=== PATIENT | female | born 1950 | race Caucasian/White ===

== ENCOUNTER 2017-07-27 04:10 | Emergency (ER) | payer MEDICARE, OTHER ==
[2017-07-27 04:16] VITALS: BP 164/89
[2017-07-27] MEDS ORDERED: Alum Hydrox/Mag Hydrox/Simeth 30 ML, Lidocaine 2% 15 ML PO STA ×2 (04:53)
--- NOTE | 2017-07-27 05:03 | EDM.PDOC ---
ED HPI GENERAL MEDICAL PROBLEM - General Chief Complaint: Cardiovascular Problem Stated Complaint: CHEST PAIN Time Seen by Provider: 07/27/17 04:20 Source of Information: Reports: Patient, Family (), RN Notes Reviewed History Limitations: Reports: No Limitations - History of Present Illness INITIAL COMMENTS - FREE TEXT/NARRATIVE: The patient states that she noticed a "tweak" in her central chest last night around 18:00. She describes the tweak as a stabbing pain, sudden onset, with associated dyspnea. She states that it "knocked the wind out of me". She did not have nausea, diaphoresis, or sense of impending doom. The sensation lasted around 10 minutes. The patient was then woken up around 04:00 with a burning sensation in her central chest. It has persisted. No prior similar symptoms, however, the patient also relates left scapular pain about 2 days ago, that the patient was able to relieve with local massage. The patient and her recently moved to this area. Her PCP is in [place]. Left Chest Pain Score (Numeric/FACES): 6 - Related Data Allergies Allergy/AdvReac Type Severity Reaction Status Date / Time Penicillins Allergy Severe Hives Verified 07/27/17 04:18 acetaminophen Allergy Hives Verified 07/27/17 04:18 [From Darvocet-N] Anesthetics - Amide Type Allergy Hives Verified 07/27/17 04:18 Anesthetics - [place] Type- Allergy Hives Verified 07/27/17 04:18 Parabens aspirin Allergy Hives Verified 07/27/17 04:18 latex Allergy Hives Verified 07/27/17 04:18 propoxyphene Allergy Hives Verified 07/27/17 04:18 [From Darvocet-N] Home Meds: Home Meds Hydrochlorothiazide 07/27/17 [History] Metoprolol Succinate 07/27/17 [History] Ramipril [Altace] 07/27/17 [History] Past Medical History HEENT History: Reports: Glaucoma (right eye) Cardiovascular History: Reports: Hypertension Genitourinary History: Reports: Renal Calculus, Urinary Incontinence Musculoskeletal History: Reports: Arthritis Neurological History: Reports: CVA Endocrine/Metabolic History: Reports: Other (See Below) (Prediabetes) - Past Surgical History HEENT Surgical History: Reports: Other (See Below) (Maxillofacial surgery as a child) Female Surgical History: Reports: Hysterectomy, Kidney stone extraction, Lithotripsy/ESWL, Salpingo-Oophorectomy Neurological Surgical History: Reports: Lumbar Spine Musculoskeletal Surgical History: Reports: Other (See Below) (Left great toe joint replacement) Social & Family History - Family History Family Medical History: Noncontributory - Tobacco Use Smoking Status *Q: Former Smoker Month Tobacco Last Used: Quit 1975 - Alcohol Use Alcohol Use History: Yes Alcohol Use Frequency: Socially - Recreational Drug Use Recreational Drug Use: No - Living Situation & Occupation Living situation: Reports: , with Spouse Occupation: Retired ED [employer] GENERAL - Review of Systems Review Of Systems: See Below Constitutional: Reports: No Symptoms HEENT: Reports: No Symptoms Respiratory: Reports: Cough (cough x 2 months) Cardiovascular: Reports: No Symptoms Endocrine: Reports: No Symptoms GI/Abdominal: Reports: No Symptoms : Reports: No Symptoms Musculoskeletal: Reports: No Symptoms Skin: Reports: No Symptoms Neurological: Reports: No Symptoms Psychiatric: Reports: No Symptoms Hematologic/Lymphatic: Reports: No Symptoms Immunologic: Reports: No Symptoms ED EXAM, GENERAL - Physical Exam Exam: See Below Exam Limited By: No Limitations General Appearance: Alert, WD/WN, No Apparent Distress Eye Exam: Bilateral Eye: Normal Inspection Ears: Normal External Exam, Hearing Grossly Normal Nose: Normal Inspection, No Blood Throat/Mouth: Normal Inspection, Normal Lips, Normal Voice, No Airway Compromise Head: Atraumatic, Normocephalic Neck: Normal Inspection, Full Range of Motion Respiratory/Chest: No Respiratory Distress, Lungs Clear, Normal Breath Sounds, No Accessory Muscle Use, Chest Non-Tender Cardiovascular: Normal Peripheral Pulses, Regular Rate, Rhythm, No Gallop, No JVD, No Murmur, No Rub Peripheral Pulses: 4+: Radial (L), Radial (R) GI/Abdominal: Normal Bowel Sounds, Soft, Non-Tender, No Organomegaly, No Distention, No Abnormal Bruit, No Mass (Female) Exam: Deferred Rectal (Female) Exam: Deferred Back Exam: Normal Inspection, Full Range of Motion, NT Extremities: Normal Inspection, Normal Range of Motion, No Pedal Edema, Normal Capillary Refill Neurological: Alert, Oriented, No Motor/Sensory Deficits Psychiatric: Normal Affect Skin Exam: Warm, Dry, Intact, Normal Color, No Rash Lymphatic: No Adenopathy EKG INTERPRETATION EKG Date: 07/27/17 Time: 04:16 Rhythm: NSR Rate (Beats/Min): 61 [place]: Normal P-Wave: Present QRS: Normal ST-T: Normal QT: Normal Comparison: NA - No Prior EKG Course - Vital Signs Last Recorded V/S: Last Vital Signs Temp 36.0 C 07/27/17 04:13 Pulse 65 07/27/17 04:13 Resp 18 07/27/17 04:13 BP 164/89 H 07/27/17 04:13 Pulse Ox 99 07/27/17 04:13 - Orders/Labs/Meds Orders: Active Orders 24 hr Category Date Time Status EKG Documentation Completion [RC] STAT Care 07/27/17 04:20 Active Chest 2V [CR] Stat Exams 07/27/17 04:57 Taken BLOOD GAS ARTERIAL [BG] Stat Lab 07/27/17 04:58 Ordered Labs: Laboratory Tests 07/27/17 07/27/17 07/27/17 Range/Units 04:20 04:20 04:20 WBC 5.70 (3.98-10.04) K/mm3 RBC 4.61 (3.98-5.22) M/mm3 Hgb 14.5 (11.2-15.7) gm/L Hct 43.2 (34.1-44.9) % MCV 93.7 (79.4-94.8) fl MCH 31.5 (25.6-32.2) pg MCHC 33.6 (32.2-35.5) g/dl RDW Std Deviation 44.0 (36.4-46.3) fL Plt Count 260 (182-369) K/mm3 MPV 10.7 (9.4-12.3) fl Neutrophils % (Manual) 58 (40-60) % Band Neutrophils % 1 (0-10) % Lymphocytes % (Manual) 29 (20-40) % Atypical Lymphs % 0 % Monocytes % (Manual) 9 (2-10) % Eosinophils % (Manual) 3 (0.7-5.8) % Basophils % (Manual) 0 L (0.1-1.2) Platelet Estimate Adequate RBC Morph Comment Normal PT 9.7 (8.0-13.0) SECONDS INR 0.90 APTT 25 (22-36) SECONDS D-Dimer, Quantitative 0.45 (0.19-0.59) mg/L Sodium 143 (136-145) mEq/L Potassium 3.6 (3.5-5.1) mEq/L Chloride 106 (98-107) mEq/L Carbon Dioxide 32 (21-32) mEq/L Anion Gap 8.6 (5-15) BUN 26 H (7-18) mg/dL Creatinine 1.1 H (0.55-1.02) mg/dL Est Cr Clr Drug Dosing 42.18 mL/min Estimated GFR (MDRD) 50 (>60) mL/min BUN/Creatinine Ratio 23.6 H (14-18) Glucose 110 (80-115) mg/dL Calcium 9.1 (8.5-10.1) mg/dL Total Bilirubin 0.5 (0.2-1.0) mg/dL AST 20 (15-37) U/L ALT 26 (14-59) U/L Alkaline Phosphatase 96 (46-116) U/L Troponin I < 0.017 (0.00-0.056) ng/mL NT-Pro-B Natriuret Pep 242 H (0-125) pg/mL Total Protein 7.0 (6.4-8.2) g/dl Albumin 4.0 (3.4-5.0) g/dl Globulin 3.0 gm/dL Albumin/Globulin Ratio 1.3 (1-2) Meds: Medications Discontinued Medications Generic Name Dose Route Start Last Admin Trade Name Freq PRN Reason Stop Dose Admin Al Hydroxide/Mg Hydroxide 30 0 ml 07/27/17 04:53 07/27/17 04:57 ml/ Lidocaine HCl 15 ml PO 07/27/17 04:54 45 ml ONETIME STA Administration - Re-Assessments/Exams Free Text/Narrative Re-Assessment/Exam: 07/27/17 05:02 The patient states that the GI cocktail modified the discomfort that she had in her chest - not necessarily better or worse, but different. 07/27/17 05:23 Two-view chest radiograph appears to be grossly normal. Cardiac silhouette is within normal limits. No pulmonary vascular congestion. No pleural effusions. No focal infiltrate. No pneumothorax. Hyperinflation and modest bilateral diaphragmatic flattening, consistent with COPD, noted. Formal read per the Radiologist pending. 07/27/17 05:58 Notified by the respiratory therapist that he was unable to acquire an ABG after 2 attempts. 07/27/17 06:10 Test results discussed with the patient and her . Clinically, I suspect that the patient's symptoms were caused by GERD, although he also appears that she was hyperventilating, possibly due to the discomfort, possibly due to anxiety. Significant causes, such as acute coronary event, pulmonary embolus, pneumonia, pneumothorax, etc. have been ruled out. I'm recommending that if her symptoms persist, that she take [id number] Pepcid, and if that does not help, that she be evaluated with an EGD. I will refer her to Dr. Giron in the clinic. Departure - Departure Time of Disposition: 06:11 Disposition: Home, Self-Care 01 Condition: Good Clinical Impression: GERD (gastroesophageal reflux disease), Anxiety Referrals: PCP,Jermaine [Primary Care Provider] - Jon Giron [Physician] - Forms: ED Department Discharge Additional Instructions: You were seen in the emergency room for a stabbing pain in your chest, along with shortness of breath, followed by a burning sensation in your chest. Workup in the ER included blood work, an ECG, and a chest XRay. Your entire workup was unremarkable. You have not suffered a heart attack. You do not have a blood clot in her chest. You do not have pneumonia. You do not have a collapsed lung. Your chest pain was MOST LIKELY due to acid reflux, also known as GERD. If your symptoms continue, we recommend you take [id number] Pepcid once, or even twice a day. If that does not help, further evaluation is necessary. Please follow-up with Dr. Giron in the clinic. If any other problems, please do not hesitate to return to the ER. - My Orders Last 24 Hours: My Active Orders 07/27/17 04:20 EKG Documentation Completion [RC] STAT 07/27/17 04:57 Chest 2V [CR] Stat 07/27/17 04:58 BLOOD GAS ARTERIAL [BG] Stat - Assessment/Plan Last 24 Hours: My Active Orders 07/27/17 04:20 EKG Documentation Completion [RC] STAT 07/27/17 04:57 Chest 2V [CR] Stat 07/27/17 04:58 BLOOD GAS ARTERIAL [BG] Stat
--- NOTE | 2017-07-31 08:21 | CR ---
Chest: Two views of the chest were obtained. Comparison: No prior chest x-ray. Heart size is normal. Mild tortuosity of the thoracic aorta is noted. Lungs are clear without acute infiltrates. Nodule is identified within the right lung base which appears rather dense and is felt compatible with granuloma. Slight degenerative change is scattered within the spine. Impression: 1. Incidental findings. Nothing acute is appreciated on two-view chest x-ray. Diagnostic code #2
== END 2017-07-27 06:19 | disposition home or self-care (01) ==
LOC: JD.ED 04:10
DX: K21.9 Gastro-esophageal reflux disease without esophagitis (principal); F41.9 Anxiety disorder, unspecified; I10 Essential (primary) hypertension; Z88.0 Allergy status to penicillin; Z88.6 Allergy status to analgesic agent; Z91.040 Latex allergy status; Z87.442 Personal history of urinary calculi; Z86.73 Personal history of transient ischemic attack (TIA), and cerebral infarction without residual deficits; Z90.710 Acquired absence of both cervix and uterus; Z87.891 Personal history of nicotine dependence
CPT/HCPCS: 36415; 71020; 80053; 83880; 84484; 85025; 85379; 85610; 85730; 93005; 99285; A9270; 93010

== ENCOUNTER 2017-10-15 05:22 | Emergency (ER) | payer MEDICARE, OTHER ==
[2017-10-15 05:32] VITALS: BP 173/99
--- NOTE | 2017-10-15 06:11 | EDM.PDOC ---
ED HPI GENERAL MEDICAL PROBLEM - General Chief Complaint: Chest Pain Stated Complaint: CHEST PAIN Time Seen by Provider: 10/15/17 05:53 Source of Information: Reports: Patient, Family History Limitations: Reports: No Limitations - History of Present Illness INITIAL COMMENTS - FREE TEXT/NARRATIVE: This is a 67-year-old female. She comes tonight for multiple reasons. The first one is that she had a EDG at the end of January because, if I understand correctly , she had food stuck in her esophagus and she had to go to the hospital to get the food removed and then they did a biopsy of her esophagus. She has no idea what the biopsy showed. She says ever since that time she gets pinching in her chest and it makes her nervous and she wants to find out why she is having all these problems and she still having difficulty in swallowing. She was referred by her doctor to a GI doctor in [place] but that appointment is going to be in a few weeks. Looking in the past notes she seems to have this problem with this pinching in her chest with her visits to the ER as well as her family doctor. Her second problem is that she has left-sided low back pain that started around October 08 when she leaned back and she felt her back crack. Now she has pain in her left lower back at that sometimes radiates down her left leg but just into the buttocks and thigh area. The third problem is that she feels dry all the time even though she drinks a lot of fluid and wonders why she is dry all the time. She does take a fluid pill but she doesn't know why she takes a fluid pill because she doesn't have a history of congestive heart failure or peripheral edema. The fourth problem is that her urine has been smelling strong the last few days and she wants her urine checked. She's had no fever no chills no nausea vomiting or diarrhea. Also concerned that her kidneys might be failing. The fifth problem she wants her potassium checked to make sure it's okay. Chest Pain Score (Numeric/FACES): 8 - Related Data Allergies Allergy/AdvReac Type Severity Reaction Status Date / Time Penicillins Allergy Severe Hives Verified 07/27/17 04:18 acetaminophen Allergy Hives Verified 07/27/17 04:18 [From Darvocet-N] Anesthetics - Amide Type Allergy Hives Verified 07/27/17 04:18 Anesthetics - Maylin Type- Allergy Hives Verified 07/27/17 04:18 Parabens aspirin Allergy Hives Verified 07/27/17 04:18 latex Allergy Hives Verified 07/27/17 04:18 nut - unspecified Allergy Anaphylactic Verified 10/15/17 05:33 Shock propoxyphene Allergy Hives Verified 07/27/17 04:18 [From Darvocet-N] Home Meds: Home Meds Metoprolol Succinate 50 mg PO DAILY 07/27/17 [History] Ramipril [Altace] 20 mg PO DAILY 07/27/17 [History] Triamterene/Hydrochlorothiazid [Triamterene-HCTZ 37.5-25 MG] 1 cap PO QAM [History] Past Medical History HEENT History: Reports: Glaucoma Cardiovascular History: Reports: Hypertension Genitourinary History: Reports: Renal Calculus, Urinary Incontinence Musculoskeletal History: Reports: Arthritis Neurological History: Reports: CVA Endocrine/Metabolic History: Reports: Other (See Below) (Prediabetes) Other Endocrine/Metabolic History: patient states she is borderline diabetic and has it controlled with diet - Past Surgical History Female Surgical History: Reports: Hysterectomy, Kidney stone extraction, Lithotripsy/ESWL, Salpingo-Oophorectomy Neurological Surgical History: Reports: Lumbar Spine Musculoskeletal Surgical History: Reports: Other (See Below) Social & Family History - Family History Family Medical History: Noncontributory - Tobacco Use Smoking Status *Q: Never Smoker Month Tobacco Last Used: Quit 1975 - Recreational Drug Use Recreational Drug Use: No - Living Situation & Occupation Living situation: Reports: , with Spouse Occupation: Retired ED [employer] GENERAL - Review of Systems Review Of Systems: See Below Constitutional: Reports: Malaise, Weakness. Denies: Fever, Chills HEENT: Reports: No Symptoms Respiratory: Denies: Shortness of Breath, Cough Cardiovascular: Reports: Chest Pain. Denies: Edema Endocrine: Reports: No Symptoms GI/Abdominal: Denies: Abdominal Pain, Diarrhea, Nausea, Vomiting : Reports: Other (Her urine smells strong). Denies: Dysuria Musculoskeletal: Reports: Other (Left low back pain) Skin: Reports: Other (Skin is always dry as well as her throat) Neurological: Reports: No Symptoms Psychiatric: Reports: No Symptoms Hematologic/Lymphatic: Reports: No Symptoms ED EXAM, GENERAL - Physical Exam Exam: See Below Exam Limited By: No Limitations General Appearance: Alert, WD/WN, No Apparent Distress Eye Exam: Bilateral Eye: Normal Inspection Ears: Normal External Exam Nose: Normal Inspection Throat/Mouth: Normal Inspection, Normal Lips, Normal Voice, No Airway Compromise , Other (Mucous membranes are tacky but not super moist) Head: Normocephalic Neck: Supple Respiratory/Chest: No Respiratory Distress, Lungs Clear, Normal Breath Sounds Cardiovascular: Regular Rate, Rhythm, No Murmur GI/Abdominal: Soft, Non-Tender Back Exam: Other (She complains in the left lower back actually sacrum area at the left SI joint, I can palpate that joint and that's where she says her pain starts, she does not have any lumbar or thoracic paraspinal tenderness or midline spine pain noted) Extremities: Normal Inspection, Normal Range of Motion. No: Pedal Edema Neurological: Alert, Oriented Psychiatric: Normal Affect, Normal Mood Skin Exam: Warm, Dry EKG INTERPRETATION EKG Date: 10/15/17 Time: 06:00 EKG Interpretation Comments: Her EKG shows a sinus bradycardia, no acute ST or T-wave changes, no ski me changes noted. Course - Vital Signs Last Recorded V/S: Last Vital Signs Temp 96.7 F 10/15/17 05:25 Pulse 61 10/15/17 05:25 Resp 16 10/15/17 05:25 BP 173/99 H 10/15/17 05:25 Pulse Ox 100 10/15/17 05:25 - Orders/Labs/Meds Orders: Active Orders 24 hr Category Date Time Status EKG 12 Lead [EKG Documentation Completion] [RC] STAT Care 10/15/17 05:53 Active Labs: Laboratory Tests 10/15/17 10/15/17 10/15/17 Range/Units 05:35 05:35 06:45 WBC 5.01 (3.98-10.04) K/mm3 RBC 4.56 (3.98-5.22) M/mm3 Hgb 14.5 (11.2-15.7) gm/L Hct 42.0 (34.1-44.9) % MCV 92.1 (79.4-94.8) fl MCH 31.8 (25.6-32.2) pg MCHC 34.5 (32.2-35.5) g/dl RDW Std Deviation 41.5 (36.4-46.3) fL Plt Count 251 (182-369) K/mm3 MPV 10.1 (9.4-12.3) fl Neut % (Auto) 54.9 (34.0-71.1) % Lymph % (Auto) 32.7 (19.3-51.7) % [place] % (Auto) 10.0 (4.7-12.5) % Eos % (Auto) 1.8 (0.7-5.8) Baso % (Auto) 0.6 (0.1-1.2) % Neut # (Auto) 2.75 (1.56-6.13) K/mm3 Lymph # (Auto) 1.64 (1.18-3.74) K/mm3 [place] # (Auto) 0.50 H (0.24-0.36) K/mm3 Eos # (Auto) 0.09 (0.04-0.36) K/mm3 Baso # (Auto) 0.03 (0.01-0.08) K/mm3 Sodium 143 (136-145) mEq/L Potassium 3.4 L (3.5-5.1) mEq/L Chloride 106 (98-107) mEq/L Carbon Dioxide 28 (21-32) mEq/L Anion Gap 12.4 (5-15) BUN 19 H (7-18) mg/dL Creatinine 1.0 (0.55-1.02) mg/dL Est Cr Clr Drug Dosing 44.36 mL/min Estimated GFR (MDRD) 56 (>60) mL/min BUN/Creatinine Ratio 19.0 H (14-18) Glucose 101 (80-115) mg/dL Calcium 9.5 (8.5-10.1) mg/dL Total Bilirubin 0.6 (0.2-1.0) mg/dL AST 19 (15-37) U/L ALT 22 (14-59) U/L Alkaline Phosphatase 93 (46-116) U/L Troponin I < 0.017 (0.00-0.056) ng/mL Total Protein 7.1 (6.4-8.2) g/dl Albumin 4.0 (3.4-5.0) g/dl Globulin 3.1 gm/dL Albumin/Globulin Ratio 1.3 (1-2) Urine Color Yellow (Yellow) Urine Appearance Clear (Clear) Urine pH 6.0 (5.0-8.0) Ur Specific [place] 1.020 (1.005-1.030) Urine Protein Negative (Negative) Urine Glucose (UA) Negative (Negative) Urine Ketones Negative (Negative) Urine Occult Blood 1+ H (Negative) Urine Nitrite Negative (Negative) Urine Bilirubin Negative (Negative) Urine Urobilinogen 0.2 (0.2-1.0) Ur Leukocyte Esterase Trace H (Negative) Urine RBC 10-20 H (0-5) /hpf Urine WBC 5-10 H (0-5) /hpf Ur Epithelial Cells 0-5 (0-5) /hpf Urine Bacteria Few (FEW) /hpf Hyaline Casts 0-5 (0-5) /lpf Urine Mucus Few (FEW) /hpf - Re-Assessments/Exams Free Text/Narrative Re-Assessment/Exam: 10/15/17 07:15 I spoke to the patient and her family regarding the test results. I've encouraged her to follow up with her family doctor regarding the blood pressure medications and the fluid pill as well as talk to them about getting an upper endoscopy for her esophagus and possible physical therapy for her back. Departure - Departure Time of Disposition: 07:16 Disposition: Home, Self-Care 01 Condition: Good Clinical Impression: Disorder of left sacroiliac joint, Irritable esophagus Sciatica Qualifiers: Laterality: left Qualified Code(s): M54.32 - Sciatica, left side Hypertension Qualifiers: Hypertension type: essential hypertension Qualified Code(s): I10 - Essential ( primary) hypertension Hematuria Qualifiers: Hematuria type: unspecified type Qualified Code(s): R31.9 - Hematuria, unspecified Referrals: Jon Giron [Primary Care Provider] - Forms: ED Department Discharge Additional Instructions: Follow-up with her family physician, speak to him regarding your blood pressure being more elevated than normal and about possibly stopping the fluid pill since it dries you out, also speak to him about your sacroiliac joint and back pain and the need for physical therapy, also speak to him about your esophageal problems and the see if the GI doctor you're supposed to see in a couple of weeks can do an upper endoscopy as well as the colonoscopy at the same time, recheck the ER if needed - My Orders Last 24 Hours: My Active Orders 10/15/17 05:53 EKG 12 Lead [EKG Documentation Completion] [RC] STAT - Assessment/Plan Last 24 Hours: My Active Orders 10/15/17 05:53 EKG 12 Lead [EKG Documentation Completion] [RC] STAT
== END 2017-10-15 07:42 | disposition home or self-care (01) ==
LOC: JD.ED 05:22
DX: M54.42 Lumbago with sciatica, left side (principal); M53.3 Sacrococcygeal disorders, not elsewhere classified; I10 Essential (primary) hypertension; K22.9 Disease of esophagus, unspecified; R31.9 Hematuria, unspecified; Z88.0 Allergy status to penicillin; Z88.6 Allergy status to analgesic agent; Z91.040 Latex allergy status; Z88.8 Allergy status to other drugs, medicaments and biological substances; Z79.899 Other long term (current) drug therapy
CPT/HCPCS: 36415; 80053; 81001; 84484; 85025; 93005; 93010; 99285-25

== ENCOUNTER 2017-11-06 18:11 | Emergency (ER) | payer MEDICARE, OTHER ==
[2017-11-06 18:25] VITALS: BP 159/98
[2017-11-06] MEDS ORDERED: Famotidine 20 MG/2 ML SDV IVPUSH ONE (18:44)
[2017-11-06] MEDS ORDERED: predniSONE 20 MG Tab PO ONE (18:45)
[2017-11-06] MEDS ORDERED: diphenhydrAMINE 50 MG/ML SDV IVPUSH ONE (18:45)
--- NOTE | 2017-11-06 18:51 | EDM.PDOC ---
ED HPI GENERAL MEDICAL PROBLEM - General Chief Complaint: Allergic Reaction Stated Complaint: ALLERGIC REACTION (NUTS) Time Seen by Provider: 11/06/17 18:28 Source of Information: Reports: Patient History Limitations: Reports: No Limitations - History of Present Illness INITIAL COMMENTS - FREE TEXT/NARRATIVE: Patient is 67-year-old female presents ED with concerns of having allergic reaction to unknown food product. Patient had just eaten a piece of plain leyva , cheese, and date marmalade. Patient immediately started to experience the sensation her throat was closing off developed a small blister to the upper lip and became very anxious. She utilized a epi auto injector 0.3 mg and when attempting to inject into her leg she accidentally injected into her right thumb. Since then the symptoms have remained unchanged. She is not as anxious as she was prior though she continues have the sensation of her throat swelling shut. There is no rash present to her body. Small lesion to the upper lip persists. She is allergic to walnuts and pecans. Shes had a previous episode as such that did not require being intubated. She has a history of hypertension and takes metoprolol succinate and altace. She has a history of acid reflux and takes omeprazole. She is a borderline diabetic. - Related Data Allergies Allergy/AdvReac Type Severity Reaction Status Date / Time Penicillins Allergy Severe Hives Verified 11/06/17 18:25 acetaminophen Allergy Hives Verified 11/06/17 18:25 [From Darvocet-N] Anesthetics - Amide Type Allergy Hives Verified 11/06/17 18:25 Anesthetics - Maylin Type- Allergy Hives Verified 11/06/17 18:25 Parabens aspirin Allergy Hives Verified 11/06/17 18:25 latex Allergy Hives Verified 11/06/17 18:25 nut - unspecified Allergy Anaphylactic Verified 11/06/17 18:25 Shock propoxyphene Allergy Hives Verified 11/06/17 18:25 [From Darvocet-N] Home Meds: Home Meds Metoprolol Succinate 50 mg PO DAILY 07/27/17 [History] Ramipril [Altace] 20 mg PO DAILY 07/27/17 [History] EPINEPHrine [Epipen 2-William] 0.3 mg IJ ASDIRECTED PRN #1 ml 11/06/17 [Rx] Omeprazole 20 mg PO BID 11/06/17 [History] Prednisone [IJD: predniSONE] 40 mg PO WITHBREAKFAST #8 tab 11/06/17 [Rx] Past Medical History HEENT History: Reports: Glaucoma, Impaired Vision Cardiovascular History: Reports: Hypertension Gastrointestinal History: Reports: Diverticulosis Genitourinary History: Reports: Renal Calculus, Urinary Incontinence Musculoskeletal History: Reports: Arthritis Neurological History: Reports: CVA Endocrine/Metabolic History: Reports: Other (See Below) Other Endocrine/Metabolic History: patient states she is borderline diabetic and has it controlled with diet - Past Surgical History Female Surgical History: Reports: Hysterectomy, Kidney stone extraction, Lithotripsy/ESWL, Salpingo-Oophorectomy Neurological Surgical History: Reports: Lumbar Spine Social & Family History - Family History Family Medical History: Noncontributory - Tobacco Use Smoking Status *Q: Never Smoker Month Tobacco Last Used: Quit 1975 - Caffeine Use Caffeine Use: Reports: None - Recreational Drug Use Recreational Drug Use: No - Living Situation & Occupation Living situation: Reports: , with Spouse Occupation: Retired ED ROS ALLERGIC REACTION - Review of Systems Review Of Systems: See Below Constitutional: Denies: Fever, Decreased Appetite HEENT: Reports: Other (Sensation throat is swelling shut) Respiratory: Reports: No Symptoms Cardiovascular: Reports: No Symptoms GI/Abdominal: Reports: No Symptoms Musculoskeletal: Reports: No Symptoms Skin: Reports: Rash (Small blisterlike lesion to the upper lip 1.) Neurological: Reports: No Symptoms ED EXAM GENERAL NO PERIP PULSE - Physical Exam Exam: See Below Exam Limited By: No Limitations General Appearance: Alert, WD/WN, No Apparent Distress Ears: Hearing Grossly Normal Nose: Normal Inspection Throat/Mouth: Normal Voice, No Airway Compromise Neck: Normal Inspection, Supple Respiratory/Chest: No Respiratory Distress, Lungs Clear, Normal Breath Sounds, No Accessory Muscle Use, Chest Non-Tender Cardiovascular: Normal Peripheral Pulses, Regular Rate, Rhythm, No Murmur GI/Abdominal: Normal Bowel Sounds, Soft, Non-Tender, No Organomegaly, No Distention Back Exam: Normal Inspection Extremities: Normal Range of Motion, Other (Right thumb: Dried blood with swelling to the palmar side of the thumb secondary to puncture injury from auto injector of epinephrine.) Neurological: Alert, Oriented, CN II-XII Intact, Normal Cognition, No Motor/ Sensory Deficits Course - Vital Signs Last Recorded V/S: Last Vital Signs Temp 98.4 F 11/06/17 18:21 Pulse 80 11/06/17 18:21 Resp 19 11/06/17 18:21 BP 159/98 H 11/06/17 18:21 Pulse Ox 98 11/06/17 18:21 - Orders/Labs/Meds Orders: Active Orders 24 hr Category Date Time Status EKG Documentation Completion [RC] ASDIRECTED Care 11/06/17 18:46 Active EKG 12 Lead [EK] Stat Ther 11/06/17 18:46 Ordered Meds: Medications Discontinued Medications Generic Name Dose Route Start Last Admin Trade Name Freq PRN Reason Stop Dose Admin Diphenhydramine HCl 50 mg 11/06/17 18:45 11/06/17 19:00 Benadryl IVPUSH 11/06/17 18:46 50 mg ONETIME ONE Administration Famotidine 40 mg 11/06/17 18:44 11/06/17 18:57 Pepcid IVPUSH 11/06/17 18:45 40 mg ONETIME ONE Administration Prednisone 40 mg 11/06/17 18:45 11/06/17 18:57 Prednisone PO 11/06/17 18:46 40 mg ONETIME ONE Administration - Re-Assessments/Exams Free Text/Narrative Re-Assessment/Exam: Patient is in no acute respiratory distress. Examination was benign. She still has a sensation that her throat is closing off. Thus I have ordered Benadryl 50 mg IVP, pepcid 40 mg IVP, and also prednisone 40 mg by mouth. EKG will be obtained as well since the patient injected herself with epinephrine 0.3 mg. EKG: Sinus rhythm at a rate of 72 with [address] changes noted. 11/06/17 20:10 Reassessment, patient is feeling much better. Has no additional symptoms at this time. She is wishing to be discharged home. Request prescription for auto injector EpiPen. Discussed return precautions with the patient. Will discharge with instructions as discussed. Departure - Departure Time of Disposition: 20:28 Disposition: Home, Self-Care 01 Condition: Good Clinical Impression: Allergic reaction Qualifiers: Encounter type: initial encounter Qualified Code(s): T78.40XA - Allergy, unspecified, initial encounter - Discharge Information Prescriptions: EPINEPHrine [Epipen 2-William] 0.3 mg IJ ASDIRECTED PRN #1 ml PRN Reason: Shortness Of Breath Prednisone [IJD: predniSONE] 40 mg PO WITHBREAKFAST #8 tab Instructions: Anaphylactic Reaction Referrals: Jon Giron [Primary Care Provider] - Forms: ED Department Discharge Additional Instructions: Take prednisone 40 mg every day for the next 4 days. Take Pepcid 40 mg every day for the next 4 days. Can take Benadryl 50 mg every 6 hours as needed for scratchy throat or if you develop hives. If you develop anaphylactic symptoms again including shortness of breath, wheezing, sensation throat is closing off utilize the EpiPen autoinjector 0.3 mg subcutaneous/IM 1. If no improvements May repeat dose times one after 5-15 minutes. Please call 911 to be evaluated at the closest ED. - My Orders Last 24 Hours: My Active Orders 11/06/17 18:46 EKG Documentation Completion [RC] ASDIRECTED EKG 12 Lead [EK] Stat - Assessment/Plan Last 24 Hours: My Active Orders 11/06/17 18:46 EKG Documentation Completion [RC] ASDIRECTED EKG 12 Lead [EK] Stat
== END 2017-11-06 21:04 | disposition home or self-care (01) ==
LOC: JD.ED 18:11
DX: T78.1XXA Other adverse food reactions, not elsewhere classified, initial encounter (principal); S00.521A Blister (nonthermal) of lip, initial encounter; I10 Essential (primary) hypertension; Z88.0 Allergy status to penicillin; Z88.8 Allergy status to other drugs, medicaments and biological substances; Z88.6 Allergy status to analgesic agent; Z91.040 Latex allergy status; Z91.018 Allergy to other foods; Z79.899 Other long term (current) drug therapy; X58.XXXA Exposure to other specified factors, initial encounter
CPT/HCPCS: 93005; 96374; 96375; 99283; A9270; J1200; 93010; 99284

== ENCOUNTER 2017-12-01 19:55 | Emergency (ER) | payer MEDICARE, OTHER ==
[2017-12-01 20:10] VITALS: BP 147/88
--- NOTE | 2017-12-01 20:12 | EDM.PDOC ---
ED HPI GENERAL MEDICAL PROBLEM - General Chief Complaint: Upper Extremity Injury/Pain Stated Complaint: L HAND INJURY Time Seen by Provider: 12/01/17 20:12 Source of Information: Reports: Patient History Limitations: Reports: No Limitations - History of Present Illness INITIAL COMMENTS - FREE TEXT/NARRATIVE: Patient is a 67-year-old female who presents to the ED complaining of right hand and finger pain. Patient states just prior to arrival she fell on the ice. Patient broke her fall with catching herself with her right hand on the knuckles. There is bruising noted to the right MCP, right PIP, middle finger, with minimal swelling present. She has full range of motion was no sensory deficits. She has minimal pain present. No pain noted to the wrist or remaining fingers. No pain to the forearm, elbow, upper arm, shoulder, or clavicle. She did not hit her head nor injure her neck or back. She offers no additional complaints at this time. Right Hand Pain Score (Numeric/FACES): 6 - Related Data Allergies Allergy/AdvReac Type Severity Reaction Status Date / Time Penicillins Allergy Severe Hives Verified 11/06/17 18:25 acetaminophen Allergy Hives Verified 11/06/17 18:25 [From Darvocet-N] Anesthetics - Amide Type Allergy Hives Verified 11/06/17 18:25 Anesthetics - Maylin Type- Allergy Hives Verified 11/06/17 18:25 Parabens aspirin Allergy Hives Verified 11/06/17 18:25 latex Allergy Hives Verified 11/06/17 18:25 nut - unspecified Allergy Anaphylactic Verified 11/06/17 18:25 Shock propoxyphene Allergy Hives Verified 11/06/17 18:25 [From Darvocet-N] tree nut [Pecans] Allergy Airway Verified 12/01/17 20:05 Tightness walnut Allergy Airway Verified 12/01/17 20:05 Tightness Home Meds: Home Meds Metoprolol Succinate 50 mg PO DAILY 07/27/17 [History] Ramipril [Altace] 20 mg PO DAILY 07/27/17 [History] Omeprazole 20 mg PO BID 11/06/17 [History] Betamethasone Dipropionate 1 dose TOP ASDIRECTED PRN 12/01/17 [History] EPINEPHrine [Epipen 2-William] 0.3 mg IJ ASDIRECTED PRN 12/01/17 [History] Past Medical History HEENT History: Reports: Glaucoma, Impaired Vision Cardiovascular History: Reports: Hypertension Gastrointestinal History: Reports: Diverticulosis Genitourinary History: Reports: Renal Calculus, Urinary Incontinence Musculoskeletal History: Reports: Arthritis Neurological History: Reports: CVA Endocrine/Metabolic History: Reports: Other (See Below) Other Endocrine/Metabolic History: patient states she is borderline diabetic and has it controlled with diet - Past Surgical History Female Surgical History: Reports: Hysterectomy, Kidney stone extraction, Lithotripsy/ESWL, Salpingo-Oophorectomy Neurological Surgical History: Reports: Lumbar Spine Social & Family History - Family History Family Medical History: Noncontributory - Tobacco Use Smoking Status *Q: Never Smoker Month Tobacco Last Used: Quit 1975 - Caffeine Use Caffeine Use: Reports: None - Recreational Drug Use Recreational Drug Use: No - Living Situation & Occupation Living situation: Reports: , with Spouse Occupation: Retired Review of Systems - Review of Systems Review Of Systems: ROS reveals no pertinent complaints other than HPI. ED EXAM, GENERAL - Physical Exam Exam: See Below Exam Limited By: No Limitations General Appearance: Alert, WD/WN, No Apparent Distress Ears: Hearing Grossly Normal Nose: Normal Inspection Throat/Mouth: Normal Voice, No Airway Compromise Neck: Normal Inspection, Supple Respiratory/Chest: No Respiratory Distress, No Accessory Muscle Use Cardiovascular: Normal Peripheral Pulses, Regular Rate, Rhythm Peripheral Pulses: 4+: Radial (R) Extremities: Other (Mild swelling and bruising noted to the fifth MCP of the right hand along with the PIP of the right pinky and also right middle finger. No decrease range of motion noted. No sensory deficits hasn't. No pain along the anatomical's snuffbox, forearm, elbow, upper arm, shoulder, or clavicle.) Neurological: Alert, Oriented, CN II-XII Intact, Normal Cognition, No Motor/ Sensory Deficits Psychiatric: Normal Affect, Normal Mood Skin Exam: Warm, Dry, Ecchymosis Course - Vital Signs Last Recorded V/S: Last Vital Signs Temp 98.4 F 12/01/17 20:05 Pulse 96 12/01/17 20:05 Resp 18 12/01/17 20:05 BP 147/88 H 12/01/17 20:05 Pulse Ox 99 12/01/17 20:05 - Re-Assessments/Exams Free Text/Narrative Re-Assessment/Exam: Highly unlikely fractured based on examination findings. Patients requests hand x-ray. Ordered x-ray of the right hand. 12/01/17 20:44 X-ray of the right hand and fingers reviewed with Dr. Betancur with no acute bony abnormalities noted. Final interpretation is pending. Will discharge patient home with instructions as documented. Departure - Departure Time of Disposition: 20:49 Disposition: Home, Self-Care 01 Condition: Good (Hand contusion) Clinical Impression: Contusion of right hand including fingers Qualifiers: Encounter type: initial encounter Qualified Code(s): S60.221A - Contusion of right hand, initial encounter - Discharge Information Instructions: Hand Contusion, [id number] Referrals: Jon Giron [Primary Care Provider] - Forms: ED Department Discharge Additional Instructions: X-rays of the right hand and fingers did not reveal any acute bony abnormalities. Treatment at this time will be ice to affected area as needed throughout the course of the day. Do not place ice directly on the skin. Elevate when able to reduce any swelling and pain. Refrain from any activities that cause worsening pain. Follow-up with PCP in the next 10-14 days for reevaluation if symptoms persist. Return to ED if you develop any new or worsening symptoms. May use Aleve or ibuprofen for pain management.
--- NOTE | 2017-12-02 16:00 | CR ---
Right hand: Four views of the right hand were obtained. Comparison: No prior study. Mild joint space narrowing scattered within the DIP and PIP joints as well as within the MCP joints. Mild degenerative change is noted at the base of the first metacarpal. Mild joint space narrowing is noted off the distal navicular bone. No acute fracture, dislocation or other bony abnormality is identified. Impression: 1. Scattered degenerative change. 2. No acute bony abnormality is identified. Diagnostic code #1
== END 2017-12-01 20:55 | disposition home or self-care (01) ==
LOC: JD.ED 19:55
DX: S60.221A Contusion of right hand, initial encounter (principal); I10 Essential (primary) hypertension; Z88.0 Allergy status to penicillin; Z88.8 Allergy status to other drugs, medicaments and biological substances; Z88.6 Allergy status to analgesic agent; Z91.040 Latex allergy status; Z91.018 Allergy to other foods; Z79.899 Other long term (current) drug therapy; W00.0XXA Fall on same level due to ice and snow, initial encounter
CPT/HCPCS: 73130-26-RT; 73130-RT; 99283

== ENCOUNTER 2018-03-10 05:35 | Emergency (ER) | payer MEDICARE, OTHER ==
--- NOTE | 2018-03-10 06:09 | EDM.PDOC ---
<Andrew Naik - Last Filed: 03/10/18 07:30> ED HPI GENERAL MEDICAL PROBLEM - General Chief Complaint: Chest Pain Stated Complaint: [facility] Time Seen by Provider: 03/10/18 05:50 Source of Information: Reports: Patient History Limitations: Reports: No Limitations - History of Present Illness INITIAL COMMENTS - FREE TEXT/NARRATIVE: The patient states that she woke just after 05:00 this morning with right-sided chest pain. It was burning in character. It may have radiated to the left scapula. She states that she felt frightened, and had shortness of breath because of that, but did not have associated nausea or diaphoresis. She states that she felt her heart pounding rapidly. The patient also notes that the center of her chest has felt "stiff" for the past 2 days, made worse if she turns her head to the left or right, or if she moves her left upper extremity. No prior similar symptoms. The patient took 2 doses of nitroglycerin, which may have decreased the sensation somewhat. She states that her chest now feels numb and dull. The patient does not have a history of coronary artery disease. She apparently was prescribed nitroglycerin by an Client Finance Analyst to help control her blood pressure. The patient's PCP is Dr. Giron. Chest Pain Score (Numeric/FACES): 6 - Related Data Allergies Allergy/AdvReac Type Severity Reaction Status Date / Time Penicillins Allergy Severe Hives Verified 03/10/18 07:30 acetaminophen Allergy Hives Verified 03/10/18 07:30 [From Darvocet-N] Anesthetics - Amide Type Allergy Hives Verified 03/10/18 07:30 Anesthetics - Maylin Type- Allergy Hives Verified 03/10/18 07:30 Parabens aspirin Allergy Bleeding Verified 03/10/18 07:30 latex Allergy Hives Verified 03/10/18 07:30 nut - unspecified Allergy Anaphylactic Verified 03/10/18 07:30 Shock propoxyphene Allergy Hives Verified 03/10/18 07:30 [From Darvocet-N] tree nut [[place]ec[place]] Allergy Airway Verified 03/10/18 07:30 Tightness walnut Allergy Airway Verified 03/10/18 07:30 Tightness Home Meds: Home Meds Metoprolol Succinate 100 mg PO DAILY 07/27/17 [History] Ramipril [Altace] 20 mg PO DAILY 07/27/17 [History] Omeprazole 20 mg PO BID 11/06/17 [History] Betamethasone Dipropionate 1 dose TOP ASDIRECTED PRN 12/01/17 [History] Estrogens, Conjugated [Premarin Vaginal Crm] 0.5 mg VAG DAILY 03/10/18 [History] Isosorbide Mononitrate [Isosorbide Mononitrate ER] 30 mg PO DAILY 03/10/18 [ History] Nitroglycerin 0.4 mg PO ASDIRECTED 03/10/18 [History] Past Medical History HEENT History: Reports: Glaucoma, Impaired Vision Cardiovascular History: Reports: Hypertension Gastrointestinal History: Reports: Diverticulosis Genitourinary History: Reports: Renal Calculus, Urinary Incontinence Musculoskeletal History: Reports: Arthritis Neurological History: Reports: CVA Endocrine/Metabolic History: Reports: Other (See Below) (Prediabetes) - Past Surgical History HEENT Surgical History: Reports: Other (See Below) (Maxillofacial surgery as a child) Female Surgical History: Reports: Hysterectomy, Kidney stone extraction, Lithotripsy/ESWL, Salpingo-Oophorectomy Neurological Surgical History: Reports: Lumbar Spine Musculoskeletal Surgical History: Reports: Other (See Below) (Left great toe replacement) Social & Family History - Family History Family Medical History: Noncontributory - Tobacco Use Smoking Status *Q: Former Smoker Month/Year Tobacco Last Used: Quit 1975 - Caffeine Use Caffeine Use: Reports: None - Alcohol Use Alcohol Use History: Yes Alcohol Use Frequency: Socially - Recreational Drug Use Recreational Drug Use: No - Living Situation & Occupation Living situation: Reports: , with Spouse Occupation: Retired ED ROS GENERAL - Review of Systems Review Of Systems: ROS reveals no pertinent complaints other than HPI. ED EXAM, GENERAL - Physical Exam Exam: See Below Exam Limited By: No Limitations General Appearance: Alert, WD/WN, No Apparent Distress, Anxious Eye Exam: Bilateral Eye: Normal Inspection Ears: Normal External Exam, Hearing Grossly Normal Nose: Normal Inspection, No Blood Throat/Mouth: Normal Inspection, Normal Lips, Normal Voice, No Airway Compromise Head: Atraumatic, Normocephalic Neck: Normal Inspection, Supple, Non-Tender, Full Range of Motion Respiratory/Chest: No Respiratory Distress, Lungs Clear, Normal Breath Sounds, No Accessory Muscle Use, Other (Unclear if palpation of the right chest reproduces the patient's pain) Cardiovascular: Normal Peripheral Pulses, Regular Rate, Rhythm, No Edema, No Gallop, No JVD, No Murmur, No Rub Peripheral Pulses: 4+: Radial (L), Radial (R) GI/Abdominal: Normal Bowel Sounds, Soft, Non-Tender, No Organomegaly, No Distention, No Abnormal Bruit, No Mass (Female) Exam: Deferred Rectal (Female) Exam: Deferred Back Exam: Normal Inspection, Full Range of Motion Extremities: Normal Inspection, Normal Range of Motion, No Pedal Edema, Normal Capillary Refill Neurological: Alert, Oriented, Normal Cognition, No Motor/Sensory Deficits Psychiatric: Normal Affect Skin Exam: Warm, Dry, Intact, Normal Color, No Rash EKG INTERPRETATION EKG Date: 03/10/18 Time: 05:46 Rhythm: NSR Rate (Beats/Min): 67 [place]: Normal P-Wave: Present QRS: Normal ST-T: Normal QT: Normal Comparison: No Change (11/06/2017) Course - Vital Signs Last Recorded V/S: Last Vital Signs Temp 37.1 C 03/10/18 05:47 Pulse 67 03/10/18 05:47 Resp 27 H 03/10/18 05:47 BP 181/84 H 03/10/18 05:47 Pulse Ox 100 03/10/18 05:47 - Orders/Labs/Meds Orders: Active Orders 24 hr Category Date Time Status EKG Documentation Completion [RC] ASDIRECTED Care 03/10/18 09:15 Active EKG Documentation Completion [RC] STAT Care 03/10/18 06:03 Active Chest 2V [CR] Stat Exams 03/10/18 06:03 Taken Labs: Laboratory Tests 03/10/18 03/10/18 03/10/18 Range/Units 05:51 05:51 05:51 WBC 5.32 (3.98-10.04) K/mm3 RBC 4.79 (3.98-5.22) M/mm3 Hgb 15.0 (11.2-15.7) gm/L Hct 43.6 (34.1-44.9) % MCV 91.0 (79.4-94.8) fl MCH 31.3 (25.6-32.2) pg MCHC 34.4 (32.2-35.5) g/dl RDW Std Deviation 42.4 (36.4-46.3) fL Plt Count 227 (182-369) K/mm3 MPV 10.7 (9.4-12.3) fl Neutrophils % (Manual) 45 (40-60) % Band Neutrophils % 0 (0-10) % Lymphocytes % (Manual) 49 H (20-40) % Atypical Lymphs % 0 % Monocytes % (Manual) 2 (2-10) % Eosinophils % (Manual) 3 (0.7-5.8) % Basophils % (Manual) 1 (0.1-1.2) Platelet Estimate Adequate RBC Morph Comment Normal PT 9.6 (9.5-12.1) SECONDS INR 0.88 APTT 24 (24-31) SECONDS D-Dimer, Quantitative 0.55 H (0.19-0.50) mg/L Sodium 143 (136-145) mEq/L Potassium 3.6 (3.5-5.1) mEq/L Chloride 105 (98-107) mEq/L Carbon Dioxide 27 (21-32) mEq/L Anion Gap 14.6 (5-15) BUN 16 (7-18) mg/dL Creatinine 0.9 (0.55-1.02) mg/dL Est Cr Clr Drug Dosing 51.55 mL/min Estimated GFR (MDRD) > 60 (>60) mL/min BUN/Creatinine Ratio 17.8 (14-18) Glucose 99 (80-115) mg/dL Calcium 9.8 (8.5-10.1) mg/dL Total Bilirubin 0.7 (0.2-1.0) mg/dL AST 45 H (15-37) U/L ALT 55 (14-59) U/L Alkaline Phosphatase 125 H (46-116) U/L CK-MB (CK-2) (0-3.6) ng/ml Troponin I < 0.017 (0.00-0.056) ng/mL Total Protein 7.3 (6.4-8.2) g/dl Albumin 4.3 (3.4-5.0) g/dl Globulin 3.0 gm/dL Albumin/Globulin Ratio 1.4 (1-2) 03/10/18 Range/Units 08:22 WBC (3.98-10.04) K/mm3 RBC (3.98-5.22) M/mm3 Hgb (11.2-15.7) gm/L Hct (34.1-44.9) % MCV (79.4-94.8) fl MCH (25.6-32.2) pg MCHC (32.2-35.5) g/dl RDW Std Deviation (36.4-46.3) fL Plt Count (182-369) K/mm3 MPV (9.4-12.3) fl Neutrophils % (Manual) (40-60) % Band Neutrophils % (0-10) % Lymphocytes % (Manual) (20-40) % Atypical Lymphs % % Monocytes % (Manual) (2-10) % Eosinophils % (Manual) (0.7-5.8) % Basophils % (Manual) (0.1-1.2) Platelet Estimate RBC Morph Comment PT (9.5-12.1) SECONDS INR APTT (24-31) SECONDS D-Dimer, Quantitative (0.19-0.50) mg/L Sodium (136-145) mEq/L Potassium (3.5-5.1) mEq/L Chloride (98-107) mEq/L Carbon Dioxide (21-32) mEq/L Anion Gap (5-15) BUN (7-18) mg/dL Creatinine (0.55-1.02) mg/dL Est Cr Clr Drug Dosing mL/min Estimated GFR (MDRD) (>60) mL/min BUN/Creatinine Ratio (14-18) Glucose (80-115) mg/dL Calcium (8.5-10.1) mg/dL Total Bilirubin (0.2-1.0) mg/dL AST (15-37) U/L ALT (14-59) U/L Alkaline Phosphatase (46-116) U/L CK-MB (CK-2) 0.8 (0-3.6) ng/ml Troponin I < 0.017 (0.00-0.056) ng/mL Total Protein (6.4-8.2) g/dl Albumin (3.4-5.0) g/dl Globulin gm/dL Albumin/Globulin Ratio (1-2) - Re-Assessments/Exams Free Text/Narrative Re-Assessment/Exam: 03/10/18 07:30 Delay in reading the chest radiograph due to PACS being down. Two-view chest radiograph appears to be unremarkable. Cardiac silhouette is within normal limits. No pulmonary vascular congestion. No pleural effusions. No focal infiltrate. No pneumothorax. Significant kyphosis noted. Formal read per the Radiologist pending. 03/10/18 07:36 The patient's initial workup is negative. I have ordered a repeat troponin and ECG at 09:15. Case discussed with Dr. Sun and care of the patient turned over to him at this time, for change of shift. Departure - Departure Disposition: Home, Self-Care 01 Clinical Impression: Non-cardiac chest pain, Anterior chest wall pain, Tendonitis of left rotator cuff - Discharge Information Referrals: Jon Giron [Primary Care Provider] - Forms: ED Department Discharge Additional Instructions: Evaluation in the emergency room this morning in regards to awakening with left- sided chest pain made worse by movement of the head and movement of the left shoulder. Assessment with ECG 2 reveals no changes in the electrocardiogram that would be suggestive of heart disease. Labs were repeated twice particularly involving cardiac markers to make sure there was no evidence of heart related illness and none was found. Also no signs of blood clot within the lungs. Chest x-ray appears to be normal. On examination Have sinus symptoms of rotator cuff tendinitis in the left shoulder as well as some chest wall pain in the upper ri to 3 and 4 in the left side. However there is no evidence of any heart related illness at this time. Continue Tylenol as needed for pain as you identified your allergic to and aspirin and have had peptic ulcer disease in the past. Therefore anti-inflammatories are not advised. Suggest follow-up with an orthopedic surgeon in regards to persistent left shoulder pain primarily for x-ray and it perhaps potentially MRI to see how bad the rotator cuff tendons are . <Rory Sun - Last Filed: 03/10/18 09:23> Course - Re-Assessments/Exams Free Text/Narrative Re-Assessment/Exam: 03/10/18 07:55 care has been assumed from Dr. Rojo as it is change of shift. Awaiting second cardiac marker evaluation. ECG reviewed. Wondering baseline however she is in sinus rhythm at 67/m. She has noted R-wave transition in V3 consider septal hypertrophy pattern. Left ventricular hypertrophy pattern. QT is mildly prolonged. Initial labs reviewed. Initial troponin was less than 0.017. 03/10/18 08:12 ordered CK-MB and serum troponin eyes repeat at 10 after 8. This is 3 hours from initial time of presentation to the ED. 4 hours from the time she awoke with pain. 03/10/18 08:34 second ECG has been completed. It reveals sinus rhythm at 60/m with occasional PVCs. Again there is early R-wave transition suggesting septal hypertrophy pattern. QT is minimally prolonged. No signs of ischemia. Borderline ECG. 03/10/18 09:06 CK-MB was 0.8. Troponin remains less than 0.017. I did examine the patient and she continues to have left upper chest pain to palpation worsened by moving her head to the left. Clinically she appears to the supraspinatus as well as a bit of a deltoid tendinitis and biceps tendinitis in the left arm. Reports these symptoms of been chronic and she's not had them checked out. Advised orthopedic surgery consult with MRI to be done to assess whether or not the super spinatus tendon is severely frayed in in need of decompression. Departure - Departure Time of Disposition: 09:20 Condition: Fair
[2018-03-10 11:20] VITALS: BP 123/81
--- NOTE | 2018-03-10 16:37 | CR ---
Chest: Two views of the chest were obtained. Comparison: Prior chest x-ray of 07/27/17. Heart size is normal. Mild tortuosity of the thoracic aorta is seen. Lungs are clear. Bony structures show scattered degenerative change within the spine. Impression: 1. Nothing acute is seen on two-view chest x-ray. Diagnostic code #2
== END 2018-03-10 09:35 | disposition home or self-care (01) ==
LOC: JD.ED 05:35
DX: R07.89 Other chest pain (principal); M75.82 Other shoulder lesions, left shoulder; Z88.0 Allergy status to penicillin; Z88.6 Allergy status to analgesic agent; Z87.891 Personal history of nicotine dependence; Z79.899 Other long term (current) drug therapy
CPT/HCPCS: 36415; 71046; 71046-26; 80053; 82553; 84484; 85025; 85379; 85610; 85730; 93005; 93010; 99284-25; 99285-25